=== PATIENT | female | born 1985 | race Caucasian/White ===

== ENCOUNTER 2018-10-14 14:52 | Inpatient (IN) | payer BC ==
[~2018-10-14] VITALS: Ht 166.4 cm; Wt 88.0 kg
[2018-10-14] MEDS ORDERED: OXYTOCIN 30 UNIT/D5LR 500 ML 500 ML IV PRN ×2 (15:36)
[2018-10-14] MEDS ORDERED: LR(*) 1000 ML BAG 1,000 ML IV SCH (15:36)
[2018-10-14] MEDS ORDERED: FAMOTIDINE(*) 20MG/50ML PREMIX 50 ML IVPB PRN (15:36)
[2018-10-14] MEDS ORDERED: LIDOCAINE/SOD BICARB 8.4% SYR SC PRN (15:40)
[2018-10-14] MEDS ORDERED: METOCLOPRAMIDE 10 MG/2 ML SDV IVP PRN (15:40)
[2018-10-14] MEDS ORDERED: LIDOCAINE 1% LOCAL 300 MG/30ML INJ PRN (15:40)
[2018-10-14] MEDS ORDERED: FLUSH 10 ML SYR IVP PRN (15:40)
[2018-10-14] MEDS ORDERED: DLR(*) 1000 ML BAG 1,000 ML IV PRN (15:40)
[2018-10-14] MEDS ORDERED: cefOXitin/DEX(*) 2GM/50ML PREM 50 ML IVPB PRN (15:40)
[2018-10-14] MEDS ORDERED: fentaNYL CITR 100 MCG/2 ML AMP IVP PRN (15:40)
[2018-10-14] MEDS ORDERED: PENICILLIN G 5 MILLUN/100 ML 100 ML IVPB ONE (16:00)
[2018-10-14 16:10] VITALS: BP 124/66; Ht 166.4 cm; Wt 88.0 kg
[2018-10-14 16:13] LABS: PLATELET COUNT, AUTOMATED 229 K/uL (150-450)
--- NOTE | 2018-10-14 18:04 | History & Physical ---
History of Present Illness Age of Patient: 32 : 1 Para or TPAL: 0 EDC per LMP: Oct 24, 2018 Estimated Gestational Age: 38.4 Chief Complaint Labor History of Present Illness Presents in labor. Was seen in office with report that membranes ruptured earlier today. Was 1 cm in office today. Presented here and is now completely dilated. complicated early with marginal previa that resolved later. She also has hypothyroidism well controlled with medication. She had GBS in her urine culture and is Rh negative. Past Medical, Surgical, Family and Obstetric Histories reviewed. [place] [facility] [place] History Patient's Blood Type: A Negative Rubella Status: Immune Group B Strep Screen: Positive Allergies: Coded Allergies: No Known Drug Allergies (Unverified , 10/14/18) Review of Systems All Systems Reviewed/Normal: Yes, Except as Noted Exam General Exam General Apperance: Alert/Awake/No Acute Distress Neuro: No Gross deficits Eyes: Normal Extraocular Movement & Vison Cardiovascular: Regular Rate and Rhythm Respiratory: No Respiratory Distress Abdomen: Soft, Non-Tender, Non-Distended Integumentary: Skin Intact without Lesions or Rash Psychological: Alert & Oriented X3 Cervical Dialation: 10 Cervical Effacement (%): 100 Presentation: Vertex Fetus Heart Tone Variabilty: Moderate FHT Accelerations: 15X15 FHT Category: I Medical Decision Making Data Points Result Diagram: 10/14/18 1605 VTE Prophylasis: Adult Deep Vein Thrombosis/Pulmonary: No Pharmacological Contraindicati: Pt at Low Risk for VTE Mechanical Contraindications: Pt at Low Risk for VTE Assessment and Plan ADMINISTRATIVE SUPPORT TECHNICIAN Plan: Routine Labor Care Problems: (1) Precipitous delivery (2) Normal labor JUSTIN CRISOSTOMO MD Oct 14, 2018 18:04
[2018-10-14] MEDS ORDERED: PENICILLIN G 2.5 MILLUN/100 ML 100 ML IVPB SCH (20:00)
--- NOTE | 2018-10-14 20:10 | OB Delivery Note ---
Delivery Note Vaginal Delivery Type: Spont. Vaginal Delivery Delivery Date: Oct 14, 2018 Delivery Time: 19:35 Estimated Gestational Age(wks): 38.4 Infant Sex: Female Covina Apgars: 1 Minute (9), 5 Minute (9) If Twins-Baby B Sex: Female Repair Needed: Laceration, 2nd Degree Estimated Blood Loss: 300 Delivery Complications: Precipitous Notes: Admitted in active labor and was 10 cm on admission. Labored down and effectively pushing, brought baby to in ANI position. Delivered over second degree laceration. Placenta delivered spontaneously and intact. Repair with 2-0 Chromic with excellent result. No complications. Coning Machine Operator in Attendence: No Copies to: JUSTIN CRISOSTOMO MD ; JUSTIN CRISOSTOMO MD Oct 14, 2018 20:10
[2018-10-14] MEDS ORDERED: MAGNESIUM HYDROXIDE* 30ML UDCP PO PRN (20:45)
[2018-10-14] MEDS ORDERED: HYDROCORTISONE 2.5% CR 30GM TB PR PRN (20:45)
[2018-10-14] MEDS ORDERED: HYDROmorphone HCL 2 MG TAB PO PRN (20:45)
[2018-10-14] MEDS ORDERED: ACETAMINOPHEN 325 MG TAB PO PRN (20:45)
[2018-10-14] MEDS ORDERED: LANOLIN OINT 7 GM TUBE TP PRN (20:45)
[2018-10-14 20:58] VITALS: BP 121/55
[2018-10-14] MEDS: DOCUSATE CALCIUM 240 MG CAP PO SCH (21:16)
[2018-10-14] MEDS: IBUPROFEN 800 MG TAB PO SCH (21:16)
[2018-10-14] MEDS: BENZOCAINE 20% 60 ML BTL TP PRN (21:17)
[2018-10-14] MEDS: GLYCERIN/WITCH HAZEL LEAF 1 PK TP PRN (21:18)
[2018-10-14 22:52] VITALS: BP 123/56
[2018-10-15] MEDS ORDERED: LIDOCAINE 1% LOCAL 300 MG/30ML 30 ML ONE (00:31)
[2018-10-15 00:58] VITALS: BP 113/56
[2018-10-15 05:00] VITALS: BP 111/57
[2018-10-15 05:03] VITALS: BP 111/57
[2018-10-15] MEDS: IBUPROFEN 800 MG TAB PO SCH ×3 (06:28→20:25)
[2018-10-15] MEDS ORDERED: PENICILLIN G 2.5 MILLUN/100 ML 100 ML IVPB SCH (08:00)
--- NOTE | 2018-10-15 08:35 | OB/GYN Progress Note ---
OB Subjective Progress Notes Subjective day #1 s/p with 2nd degree laceration. Doing well this morning with minimal pain. Voiding well. Ambulating. Tolerating PO. Vaginal bleeding slowing. Breast feeding without issue. GI: POS Flatus; NEG Nausea, NEG Vomiting : Voiding Well, Moderate Pain: Mild, Tolerating PO Pain Meds Neurological: No Headache OB Objective Physical Exam Vital Signs Date Time Temp Pulse Resp B/P (MAP) Pulse Ox O2 Delivery O2 Flow Rate FiO2 10/15/18 05:03 98.0 59 16 111/57 (75) Room Air 10/14/18 16:10 98 Intake and Output 10/15/18 07:00 Intake Total 100 ml Output Total 1175 ml Balance -1075 ml Intake IV Total 100 ml Output Urine Total 1175 ml # Voids 2 General Appearance: Alert/Awake/No Acute Distress Neurological: No Gross deficits Eyes: Normal Extraocular Movement & Vison Respiratory: No Respiratory Distress Abdomen: Fundus Firm, Bowel Sounds Present : Normal Musculoskeletal: No Weakness/Pain Extremities: No Cyanosis,Clubbing or Edema Integumentary: Skin Intact without Lesions or Rash Result Diagram: 10/15/18 0602 Assessment and Plan Post Day: 1 EXCHANGE CLERK Assessment: Stable EXCHANGE CLERK Plan: Routine Post- Care, Discharge Home Tomorrow Problems: (1) Precipitous delivery (2) Normal labor Assessment & Plan: Doing well post-, plans to discharge later tonight or tomorrow morning. Follow-up in office in 6 weeks. QUINN TINSLEY Oct 15, 2018 08:35
[2018-10-15] MEDS ORDERED: IBUP800T37 PO (08:37)
[2018-10-15] MEDS ORDERED: DOCU-416 PO (08:37)
[2018-10-15] MEDS ORDERED: MULTIVITAMINS (PRENATAL) TAB PO SCH (09:00)
[2018-10-15 09:10] VITALS: BP 110/57
[2018-10-15] MEDS: DOCUSATE CALCIUM 240 MG CAP PO SCH ×2 (09:56→20:25)
[2018-10-15 13:40] VITALS: BP 96/50
[2018-10-15 18:25] VITALS: BP 108/61
[2018-10-15] MEDS: GLYCERIN/WITCH HAZEL LEAF 1 PK TP PRN (20:27)
[2018-10-15] MEDS: BENZOCAINE 20% 60 ML BTL TP PRN (20:28)
[2018-10-15] MEDS ORDERED: MEASLES,MUMP,RUBELLA VAC 0.5ML SUBQ ONE (20:45)
[2018-10-15] MEDS ORDERED: DIPHTH/TETANUS/ACEL. PERTUSSIS IM ONLY ONE (20:45)
[2018-10-15] MEDS ORDERED: INFLUENZA VIRUS VAC 0.5ML SYR IM ONLY ONE (20:45)
== END 2018-10-15 21:24 | disposition home or self-care (01) | DRG 806 ==
LOC: OB 14:52
PROVIDERS: ADMIT Obstetrics & Gynecology; ATTEND Obstetrics & Gynecology
PROC: 10E0XZZ Delivery of Products of Conception, External Approach (ICD-10-PCS; principal; 2018-10-14)
PROC: 0KQM0ZZ Repair Perineum Muscle, Open Approach (ICD-10-PCS; 2018-10-14)
DX: O62.3 Precipitate labor (principal); O36.0130 Maternal care for anti-D [Rh] antibodies, third trimester, not applicable or unspecified; Z37.0 Single live birth; O99.824 Streptococcus B carrier state complicating childbirth; Z3A.38 38 weeks gestation of pregnancy; O99.284 Endocrine, nutritional and metabolic diseases complicating childbirth; E03.9 Hypothyroidism, unspecified; O70.1 Second degree perineal laceration during delivery
CPT/HCPCS: 36415; 85025; 85027; 86703; 86850; 86870; 86900; 86901; J2540; J7120